=== PATIENT | male | born 1975 | race African-American/Black ===

== ENCOUNTER 2021-12-05 08:39 | Emergency (ER) | payer MEDICAID ==
[~2021-12-05] VITALS: Ht 185.4 cm; Wt 144.6 kg
[2021-12-05] MEDS ORDERED: ENALAPRIL 2.5MG/2ML VIAL 2ML IV ONE (09:00)
[2021-12-05] MEDS ORDERED: ENALAPRIL 1.25MG/ML VIAL 1ML IV SCH (09:15)
[2021-12-05 09:20] LABS: BASOPHILS % 0.6 % (0.0-2.0); EOSINOPHILS % 5.1 % (0.0-5.0); HEMATOCRIT. 46.5 % (42.0-52.0); HEMOGLOBIN. 15.3 g/dL (14.0-18.0); MEAN CORPUSCULAR HEMOGLOBIN 27.3 pg (28.0-32.0); MEAN CORPUSCULAR VOLUME 83.1 fL (80.0-94.0); MEAN PLATELET VOLUME 10.2 fl (7.4-10.4); MONOCYTES % 8.8 % (2.0-8.0); NEUTROPHILS % 51.5 % (40.0-76.0); PLATELET 199 x1000/uL (130-400); RED CELL DISTRIBUTION WIDTH 13.8 % (11.6-14.6)
[2021-12-05 09:25] LABS: CHLORIDE 107 mEq/L (98-107)
[2021-12-05 10:51] LABS: *AMPHETAMINES SCREEN URINE NEGATIVE (NEGATIVE); *BARBITURATES SCREEN URINE NEGATIVE (NEGATIVE); *BENZODIAZEPINES SCREEN URINE NEGATIVE (NEGATIVE); *COCAINE SCREEN URINE NEGATIVE (NEGATIVE)
[2021-12-05 10:52] LABS: CANNABINOID URINE SCREEN PRESUMTIVE POSITIVE (NEGATIVE); METHADONE URINE SCREEN NEGATIVE (NEGATIVE); OPIATES URINE SCREEN NEGATIVE (NEGATIVE); PHENCYCLIDINE URINE SCREEN NEGATIVE (NEGATIVE)
[2021-12-05] MEDS ORDERED: CLONIDINE 0.1MG TABLET PO ONE (11:45)
[2021-12-05 12:21] VITALS: BP 175/99
[2021-12-05] MEDS ORDERED: ASPI-1406 MT (12:24)
[2021-12-05] MEDS ORDERED: LISI10TA26 MT (12:24)
[2021-12-05] MEDS ORDERED: METH-773 MT (12:24)
== END 2021-12-05 12:35 | disposition home or self-care (01) ==
LOC: ER 08:39
DX: I10 Essential (primary) hypertension (principal); M54.12 Radiculopathy, cervical region; M48.02 Spinal stenosis, cervical region
CPT/HCPCS: 36415; 71045; 72125; 80053; 80305; 83880; 84484; 85025; 93005; 96374; 99285; J3490

== ENCOUNTER 2023-03-01 23:59 | Emergency (ER) | payer MEDICAID ==
[~2023-03-01] VITALS: Ht 182.9 cm; Wt 134.0 kg
[~2023-03-01 23:59] MED LIST: ASPI-1406 MT; LISI10TA26 MT; METH-773 MT
[2023-03-02] MEDS ORDERED: CEPH500T MT (05:17)
[2023-03-02] MEDS ORDERED: HYDR-4001 MT (05:17)
[2023-03-02 05:26] VITALS: BP 130/81
[2023-03-02] MEDS ORDERED: IOHEXOL-350 100 ML BOTTLE ONE (12:33)
== END 2023-03-02 05:27 | disposition home or self-care (01) ==
LOC: ER 23:59
DX: L03.011 Cellulitis of right finger (principal); I10 Essential (primary) hypertension; Z79.899 Other long term (current) drug therapy; Z79.82 Long term (current) use of aspirin
CPT/HCPCS: 73120; 99283; Q9967